=== PATIENT | female | born 1975 | race Hispanic/Latino ===

== ENCOUNTER 2017-04-24 22:42 | Emergency (ER) | payer SELFPAY ==
[~2017-04-24] VITALS: Ht 154.9 cm; Wt 97.3 kg
[~2017-04-24 22:42] MED LIST: GLIMEPIRIDE2 MG PO; LEVOTHYROXIN50 MCG PO; LOVASTATIN10 M1 PO; MECLIZINE25 MG OR; METFORMIN500 MG PO; NO HOME MEDS
[2017-04-25] MEDS ORDERED: KEFLEX500 M1 PO (00:06)
[2017-04-25 00:14] VITALS: BP 137/83
== END 2017-04-25 00:10 | disposition home or self-care (01) | DRG 605 ==
LOC: ED 22:42
DX: S61.214A Laceration without foreign body of right ring finger without damage to nail, initial encounter (principal); W25.XXXA Contact with sharp glass, initial encounter; Y93.E9 Activity, other interior property and clothing maintenance; Y92.009 Unspecified place in unspecified non-institutional (private) residence as the place of occurrence of the external cause

== ENCOUNTER 2018-10-20 18:36 | Emergency (ER) | payer SELFPAY ==
[~2018-10-20] VITALS: Ht 160 cm; Wt 93.2 kg
[~2018-10-20 18:36] MED LIST changes: +KEFLEX500 M1 PO
[2018-10-20] MEDS ORDERED: GLIMEPIRIDE4 MG PO (19:30)
[2018-10-20] MEDS ORDERED: MOTRIN400 MG PO (20:05)
[2018-10-20] MEDS ORDERED: PERCOCET 5/325M1 TAB PO (20:05)
[2018-10-20 20:30] VITALS: BP 123/74
== END 2018-10-20 20:30 | disposition home or self-care (01) | DRG 563 ==
LOC: ED 18:36
PROC: 2W3CX1Z Immobilization of Right Lower Arm using Splint (ICD-10-PCS; principal; 2018-10-20)
DX: S52.571A Other intraarticular fracture of lower end of right radius, initial encounter for closed fracture (principal); E11.9 Type 2 diabetes mellitus without complications; E03.9 Hypothyroidism, unspecified; W01.0XXA Fall on same level from slipping, tripping and stumbling without subsequent striking against object, initial encounter; Y92.009 Unspecified place in unspecified non-institutional (private) residence as the place of occurrence of the external cause